=== PATIENT | female | born 1960 | race Caucasian/White ===

== ENCOUNTER 2020-07-02 09:35 | Inpatient (IN) ==
[2020-07-02] MEDS ORDERED: NS 0.9% 1000 ml BAG 2,000 ML IV ONE (10:01)
[2020-07-02 10:35] LABS: ABS Eosinophils 0.1 10^3/ul (0-0.6); ABS Lymphocytes 1.6 10^3/ul (1.0-4.8); ABS Monocytes 0.8 10^3/ul (0-0.8); ABS Neutrophils 15.8 10^3/ul (1.5-7.7); Eosinophil % 0.4 %; Hematocrit 31 % (35-47); Hemoglobin 10.5 g/dL (12.0-16.0); Lymphocyte % 8.7 %; Mean Corpuscular HGB Conc 34 g/dL (31-36); Mean Corpuscular Hemoglobin 33 pg (27-31); Mean Corpuscular Volume 96 fL (80-97); Mean Platelet Volume 7.8 fL (7.4-10.4); Nucleated Red Blood Cells % 0.1; Platelet Count 220 10^3/uL (150-450); Red Blood Count 3.19 10^6 /uL (3.70-4.87); Red Cell Distribution Width 15 % (10-15); White Blood Count 18.3 10^3/uL (3.5-10.8)
[2020-07-02 10:48] LABS: ALT 12 U/L (7-52); AST 12 U/L (13-39); Albumin 3.6 g/dL (3.2-5.2); Albumin/Globulin Ratio 1.4 (1-3); Alkaline Phosphatase 85 U/L (34-104); BUN/Creatinine Ratio 15.6 (8-20); Blood Urea Nitrogen 33 mg/dL (6-24); Calcium 8.5 mg/dL (8.6-10.3); Creatine Kinase 39 U/L (10-223); Globulin 2.5 g/dL (2-4); Glucose 102 mg/dL (70-100); Potassium 2.9 mmol/L (3.5-5.0); Sodium 138 mmol/L (135-145); Total Protein 6.1 g/dL (6.4-8.9)
[2020-07-02] MEDS ORDERED: Potassium Chlor 20 meq TAB.ER PO ONE ×2 (10:48→20:43)
[2020-07-02 10:52] LABS: Anion Gap 11 mmol/L (2-11); CO2 Carbon Dioxide 11 mmol/L (22-32); Chloride 116 mmol/L (101-111); Troponin I 0.05 ng/mL (<0.03)
[2020-07-02] MEDS ORDERED: Piperacillin/Tazobac ADVAN 3.375 GM in NS 0.9% 100 ml BAG 100 ML IVPB ONE (10:53)
[2020-07-02 12:19] LABS: Alcohol, S < 10 mg/dL (<10)
[2020-07-02 12:28] LABS: Urine Appearance Cloudy; Urine Bilirubin Negative (Negative); Urine Blood 1+ (Negative); Urine Color Straw; Urine Glucose Negative (Negative); Urine Ketones Negative (Negative); Urine Nitrite Negative (Negative); Urine Protein Negative (Negative); Urine Specific Gravity 1.005 (1.010-1.030); Urine Urobilinogen Negative (Negative)
[2020-07-02 12:31] LABS: Urine Bacteria Absent (Absent); Urine Red Blood Cell 2+(6-10/hpf) (Absent); Urine Squamous Epithelial Cell Present (Absent); Urine White Blood Cell 2+(11-20/hpf) (Absent)
[2020-07-02 13:11] LABS: Urine Benzodiazepine Screen None Detected (None Detect); Urine Cannabinoids Screen None Detected (None Detect); Urine Opiates Screen None Detected (None Detect)
[2020-07-02] MEDS ORDERED: NS 0.9% 1000 ml BAG 1,000 ML IV ONE ×2 (15:00→23:11)
[2020-07-02] MEDS ORDERED: Senna TAB 8.6 mg TAB PO PRN (15:02)
[2020-07-02] MEDS ORDERED: Ondansetron 4 mg VIAL 2 MG/ML 2 ml VIAL IV PRN (15:02)
[2020-07-02 15:44] LABS: Vitamin B12 1132 pg/mL (180-914)
[2020-07-02] MEDS ORDERED: Azithromycin 500 mg/250 ml NS 500 MG/250 ML BAG IVPB SCH (16:00)
[2020-07-02] MEDS ORDERED: CMCS: ZOLMitriptan 5 mg ODT (NF) PO PRN (16:23)
[2020-07-02] MEDS ORDERED: CMCS: ZOLMitriptan 5 mg ODT (NF) SL PRN (16:24)
[2020-07-02 16:46] LABS: % Iron Saturation 33 % (15-55); Iron 71 ug/dL (50-212); Total Iron Binding Capacity 217 mcg/dL (250-450); Transferrin 155 mg/dL (203-362); Unsaturated Iron Binding < 202 ug/dL
[2020-07-02] MEDS: NS 0.9% 1000 ml BAG 1,000 ML IV SCH ×2 (16:56→19:50)
[2020-07-02 16:57] LABS: Ferritin 292.7 ng/mL (11-307)
[2020-07-02] MEDS: KCL 20 MEQ/100 ML IVPREMIX 20 MEQ/100 ML BAG IV SCH ×3 (16:59→23:16)
[2020-07-02] MEDS ORDERED: KCL 20 MEQ/100 ML IVPREMIX 20 MEQ/100 ML BAG IV SCH (17:00)
[2020-07-02] MEDS ORDERED: cefTRIAXone 1 gm/50 mL NS BAG 1 GM/50 ML BAG IVPB SCH (17:00)
[2020-07-02] MEDS ORDERED: Zosyn per Pharmacy NOTE FOLLOW UP SCH (17:00)
[2020-07-02] MEDS: ZOSYN 3.375 GM Q8H per EXTENDED INFUSION IV SCH (17:26)
[2020-07-02 17:37] LABS: Troponin I 0.04 ng/mL (<0.03)
[2020-07-02] MEDS: Sodium Bicarb 650 mg (ANTACID) TAB PO SCH (18:38)
[2020-07-02 21:18] LABS: BUN/Creatinine Ratio 17.1 (8-20); Calcium 7.6 mg/dL (8.6-10.3); EGFR African American 44.4 (>60); EGFR Non-African American 36.7 (>60)
[2020-07-02] MEDS: Potassium Chlor 20 meq TAB.ER PO SCH (23:26)
[2020-07-03] MEDS: ZOSYN 3.375 GM Q8H per EXTENDED INFUSION IV SCH ×3 (01:46→18:47)
[2020-07-03] MEDS: NS 0.9% 1000 ml BAG 1,000 ML IV SCH (01:46)
[2020-07-03] MEDS: Potassium Chlor 20 meq TAB.ER PO SCH ×2 (02:14→10:13)
[2020-07-03] MEDS: Sodium Bicarb 650 mg (ANTACID) TAB PO SCH ×4 (02:15→18:47)
[2020-07-03] MEDS ORDERED: NS 0.9% 1000 ml BAG 1,000 ML IV ONE (02:24)
[2020-07-03] MEDS: KCL 20 MEQ/100 ML IVPREMIX 20 MEQ/100 ML BAG IV SCH (03:28)
[2020-07-03] MEDS ORDERED: NS 0.9% 1000 ml BAG 1,000 ML IV SCH (04:30)
[2020-07-03 09:13] LABS: ABS Eosinophils 0.4 10^3/ul (0-0.6); ABS Lymphocytes 1.5 10^3/ul (1.0-4.8); ABS Monocytes 0.5 10^3/ul (0-0.8); Eosinophil % 4.1 %; Hematocrit 23 % (35-47); Hemoglobin 8.2 g/dL (12.0-16.0); Lymphocyte % 13.9 %; Mean Corpuscular HGB Conc 36 g/dL (31-36); Mean Corpuscular Hemoglobin 35 pg (27-31); Mean Corpuscular Volume 96 fL (80-97); Mean Platelet Volume 7.9 fL (7.4-10.4); Platelet Count 162 10^3/uL (150-450); Red Blood Count 2.34 10^6 /uL (3.70-4.87); Red Cell Distribution Width 15 % (10-15); White Blood Count 10.5 10^3/uL (3.5-10.8)
[2020-07-03 09:31] LABS: BUN/Creatinine Ratio 12.7 (8-20); EGFR African American 61.5 (>60); EGFR Non-African American 50.8 (>60); Potassium 3.6 mmol/L (3.5-5.0)
[2020-07-03 16:11] VITALS: BP 94/55
[2020-07-03 16:37] LABS: BUN/Creatinine Ratio 9.7 (8-20); Calcium 7.6 mg/dL (8.6-10.3); EGFR African American 66.4 (>60); EGFR Non-African American 54.8 (>60); HDL Cholesterol 25.7 mg/dL; Potassium 4.3 mmol/L (3.5-5.0)
[2020-07-03 19:04] LABS: Urine Potassium Concentration 26.1 mmol/L
[2020-07-06 14:20] LABS: Albumin 2.2 g/dL (3.4-4.7); Albumin/Globulin Ratio 1.03; Gamma Globulin 0.4 g/dL (0.6-1.6); Total Protein(PEP) 4.3 g/dL (6.3 - 7.9)
[2020-07-10 17:09] LABS: Albumin 7 %; Albumin/Globulin Ratio 0.08 %; Gamma Globulin 9 %; Total Protein(PEP) Urine 12 mg/dL
== END 2020-07-03 19:00 | disposition left against medical advice (07) | DRG 720 ==
LOC: ED 09:35 → MED 15:02
PROVIDERS: ADMIT Internal Medicine; ATTEND Internal Medicine